=== PATIENT | female | born 1980 | race Caucasian/White ===

== ENCOUNTER 2020-01-06 12:25 | Inpatient (IN) | payer OTHER ==
[2020-01-06] MEDS ORDERED: ePHEDrine SULFATE 50 MG/1 ML AMPULE ONE (12:37)
[2020-01-06] MEDS ORDERED: morphine SULFATE/PF 0.5 MG/ML (2cc Syringe - QUVA) ONE (12:37)
[2020-01-06] MEDS ORDERED: ceFAZolin SODIUM 1 GM VIAL ONE (12:37)
[2020-01-06 13:22] VITALS: BMI 35.6
[2020-01-06] MEDS ORDERED: ELECTROLYTE-148 SOLN 1,000 ML IV SCH (13:45)
[2020-01-06] MEDS ORDERED: ELECTROLYTE-148 SOLN 500 ML IV ONE (13:45)
[2020-01-06] MEDS ORDERED: CITRIC ACID/SODIUM CITRATE 30 ML UNIT-DOSE CUP PO ONE (13:45)
--- NOTE | 2020-01-06 13:51 | HP ---
Past Medical History - Admission Chief Complaint: repeat lt c s , btl History Source: Patient Limitations to Obtaining History: No Limitations - Past Medical History [employer] SUPERINTENDENT: No: Alzheimer's, CVA, Dementia, Migraine, Multiple Sclerosis, Peripheral Neuropathy, Parkinson's, Seizure, Syncope, TIA, Vertigo, Other Cardiovascular: No: AFIB, Aneurysm, Aortic Insufficiency, Aortic Stenosis, CAD, CHF, Deep Vein Thrombosis, HTN, Hyperlipdemia, OR, Mitral Insufficiency, Mitral Stenosis, Murmur, Pulmonary Hypertension, Other Pulmonary: No: Asthma, Bronchitis, Cancer, COPD, O2 Dependent, Pneumonia, Previously Intubated, Pulmonary Embolus, Pulmonary Fibrosis, Sleep Apnea, Other Gastrointestinal: No: Ascites, Cancer, Constipation, Crohn's Disease, Diverticulitis, Diverticulosis, Esophageal Varices, Gastritis, GERD, GI Bleed, Hemorrhoids, Hiatal Hernia, Inflamatory Bowel Disease, Irritable Bowel Disease, Pancreatitis, Peptic Ulcer Disease, Ulcerative Colitis, Other Hepatobiliary: No: Cirrhosis, Cholelithiasis, Cholecystitis, Choledocholithiasis , Hepatitis A, Hepatitis B, Hepatitis C, Other Renal/: No: Renal Failure, Renal Inusuff, BPH, Cancer, Hematuria, Hemodialysis , Neurogenic Bladder, Renal Calculi, UTI, Other Reproductive: No: Ectopic , Endometriosis, Fibroids, PID, Polycystic Ovary Syndrome, Postmenopausal, Other ...: 5 ...Para: 2 ...Term: 2 ...: 0 ...Spon : 0 ...Induced : 2 ...Multiple Gestation: 0 ...EDC by Sono: 02/08/20 Heme/Onc: No: Anemia, B12 Deficiency, Bleeding Disorder, Cancer, Current Chemotherapy, Current Radiation Therapy, Hemochromatosis, Hypercoaguable State, Myeloproliferative Synd, Sickle Cell Disease, Sickle Cell Trait, Thrombocytopenia, Other Infectious Disease: No: AIDS, C-Diff, Herpes Zoster, HIV, MRSA, STD's, Tuberculosis, VREF, Other Psych: No: Addictions, Anxiety, Bipolar, Depression, Panic, Psychosis, Schizophrenia, Other Musculoskeletal: No: Bursitis, Chronic low back pain, Hemiparesis, Hemiplegia, Osteoarthritis, Paraplegia, Other Rheumatology: No: Fibromyalgia, Gout, Lupus, Rheumatoid Arthritis, Sarcoidosis, Vasculitis, Other ENT: No: Allergic Rhinitis, Sinusitis, Other Endocrine: No: Rene's Disease, [place]'s Disease, Diabetes Insipidus, Diabetes Mellitus, Hyperparathyroidism, Hyperthyroidism, Hypothyroidism, Osteopenia, SIADH, Other Dermatology: No: Basal Cell, Cellulitis, Eczema, Melanoma, Psoriasis, Squamous Cell, Other - Past Surgical History Past Surgical History: Yes: Hx Myomectomy: No Hx Transabdominal Cerclage: No - Advance Directives Advance Directives: Yes: Living Will - Smoking History Smoking history: Never smoked Have you smoked in the past 12 months: No - Alcohol/Substance Use Hx Alcohol Use: No History of Substance Use: reports: None - Social History Usual Living Arrangement: Yes: With Significant Other Do you think of yourself as: Straight/Heterosexual ADL: Independent History of Recent Travel: No Home Medications - Allergies Allergies/Adverse Reactions: Allergies Allergy/AdvReac Type Severity Reaction Status Date / Time No Known Allergies Allergy Verified 01/06/20 13:31 - Home Medications Home Medications: Ambulatory Orders Vitamins (Sjr) - 1 tab PO DAILY 12/22/19 Family Medical History Family History: Denies Review of Systems - Review of Systems Constitutional: reports: No Symptoms Eyes: reports: No Symptoms HENT: reports: No Symptoms Neck: reports: No Symptoms Cardiovascular: reports: No Symptoms Respiratory: reports: No Symptoms Gastrointestinal: reports: No Symptoms Genitourinary: reports: No Symptoms Breasts: reports: No Symptoms Reported Musculoskeletal: reports: No Symptoms Integumentary: reports: No Symptoms Neurological: reports: No Symptoms Endocrine: reports: No Symptoms Hematology/Lymphatic: reports: No Symptoms Psychiatric: reports: No Symptoms Physical Exam - Maternity Vital Signs: Vital Signs Temperature 98.1 F 01/06/20 12:58 Pulse Rate 82 01/06/20 12:58 Respiratory Rate 20 01/06/20 12:58 Blood Pressure 130/82 01/06/20 12:58 O2 Sat by Pulse Oximetry (%) Constitutional: Yes: Well Nourished, No Distress, Calm Eyes: Yes: WNL, Conjunctiva Clear, EOM Intact HENT: Yes: WNL, Atraumatic, Normocephalic Neck: Yes: WNL, Supple, Trachea Midline Cardiovascular: Yes: WNL, Regular Rate and Rhythm Lungs: Clear to auscultation Breast(s): Yes: WNL - Abdominal Exam/OB Fundal Height: 38 Number of Fetuses: Single Presentation: Vertex Contractions: Yes Regularity: Irregular Intensity: Mild Monitor Mode: External Heart Rate Location: [facility] Category: I Accelerations: Uniform Decelerations: None - Vaginal Exam/OB Vaginal Bleediing: No Speculum Exam: No Amniotic Membrane Status: Intact Presentation: Vertex/Position Station: -3 - Physical Exam Musculoskeletal: Yes: WNL Extremities: Yes: WNL Edema: Yes Edema: LUE: 1+, RUE: 1+, LLE: 1+, RLE: 1+ Integumentary: Yes: WNL Deep Tendon Reflex Grade: Normal +2 ...Motor Strength: WNL Psychiatric: Yes: WNL, Alert, Oriented Assessment/Plan anti maico antibodies 64, high, per dr. hein deliver skylar, sp betamethasone
[2020-01-06] MEDS ORDERED: OXYTOCIN 20 UNITS in 0.9% NS 40 UNIT/2,000 ML INFUS.BAG IV ONE (14:05)
[2020-01-06] MEDS ORDERED: KETOROLAC TROMETHAMINE 30 MG/1 ML VIAL ONE (14:38)
[2020-01-06] MEDS ORDERED: ONDANSETRON 4 MG/2 ML VIAL IVPUSH PRN (15:34)
[2020-01-06] MEDS ORDERED: IBUPROFEN 800 MG/8 ML IJ IVPB PRN (15:41)
[2020-01-06] MEDS ORDERED: IBUPROFEN 600 MG TABLET (FP) PO PRN (15:41)
[2020-01-06] MEDS ORDERED: oxyCODONE HCL 5 MG TABLET PO PRN (15:41)
[2020-01-06] MEDS ORDERED: ACETAMINOPHEN 325 MG TABLET (FP) PO PRN (15:41)
[2020-01-06] MEDS ORDERED: METHYLERGONOVINE MALEATE 0.2 MG/1 ML AMP IM PRN (15:41)
--- NOTE | 2020-01-06 15:46 | OP ---
Operative Note - Note: Operative Date: 01/06/20 Pre-Operative Diagnosis: isoimmunization , repeat lt c s , btl Operation: repeat lt c s , btl Post-Operative Diagnosis: Same as Pre-op Surgeon: Zafar Jain Salesperson Parts: Philip Dawkins Anesthesiologist/TEACHER ADVENTURE EDUCATION: Svetlana Sparks Anesthesia: Spinal Estimated Blood Loss (mls): 800 (no complications ) Operative Report Dictated: Yes
[2020-01-06] MEDS: OXYTOCIN 20 UNITS in 0.9% NS 20 UNIT/1,000 ML INFUS.BAG IV SCH (20:30)
--- NOTE | 2020-01-06 23:45 | OP ---
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 Cord around the neck x1. Malpresentation with transverse lie. PROCEDURE: Repeat low transverse section, bilateral salpingectomy. SURGEON: Zafar Jain MD. SIGNAL MAINTENANCE TECHNICIAN: Philip Dawkins MD. ANESTHESIA: Spinal. ANESTHESIOLOGIST: Svetlana Sparks MD. INDICATION: This is a 39-year-old female patient with previous history of bilateral tubal ligation and previous history of low transverse section. Patient got with bilateral tubal ligation surprisingly, and patient was seen in ER at 7 weeks, was confirmed with the with intrauterine , and patient decided to continue with the . 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 Livingston has been following her weekly for mid cerebral artery blood flow to make sure the baby has appropriate growth and also to prevent possibility of a demise. So patient had been seen by Dr. Livingston and also has been advised by Dr. Livingston to deliver early, between 35, 36 weeks. So patient also complained of decreased movement in the past 2 weeks. So all this above in clinical findings, and patient was taken to the OR for 35.5, 36 weeks , previous for low transverse section. Patient also received betamethasone during 32, 33 weeks' time to optimize lung maturity, so patient also understood that patient has history of bilateral tubal ligation, patient will get another tubal ligation again during this . Patient declined any other family planning methods instead of tubal ligation for future family planning. DESCRIPTION OF PROCEDURE: Patient was taken to the OR and placed on operating table in supine position after spinal anesthesia was obtained. The patient's abdomen and pelvis were prepped and draped in the usual sterile manner. Pfannenstiel incision was made. The incision was made through skin, subcutaneous tissue, until the fascia was nicked in the midline. The fascia was extended bilaterally. Intraperitoneal cavity was entered, bladder flap was created. Low transverse section was entered, baby was in transverse position, delivered from vertex presentation. Baby was with cord around the neck x1. The baby was handed over to shuttle filler after umbilical cord was doubly clamped and cut. Cord blood gas was obtained. Placenta was removed. Uterus was closed in single layer, first layer interlocking Vicryl suture, good hemostasis, and both gutters were cleaned. Both ovaries were within normal limits, and the uterus was within normal limits. However, both tubes, patient did have a tubal ligation done. The isthmic end part of the tube appeared to be transected. I do not know why patient was still able to get after this first tubal ligation. So we proceeded to the salpingectomy, the distal part of the tubes including fimbriated end were clamped with a Eveline and was double transected and suture ligated . Good hemostasis was obtained. Then we proceeded in same fashion of salpingectomy performed on the left side of the tube. Again, both sides of tubes appeared to have a tubal ligation done from the previous surgery. So, no complication after the tubal ligation. Good hemostasis . Then the patient tolerated the procedure well, draining clear urine. Blood loss about 800 mL, and the patient's peritoneum was closed. Fascia was closed. Skin was closed. Transferred to recovery room in stable condition. MD GENNARO MCGILL/[id number]
[2020-01-07] MEDS: OXYTOCIN 20 UNITS in 0.9% NS 20 UNIT/1,000 ML INFUS.BAG IV SCH ×2 (05:51→17:51)
[2020-01-07 09:38] LABS: BASO % 0.4 % (0-2.0); EOS % 1.1 % (0-4.5); HEMATOCRIT 31.4 % (32.4-45.2); HEMOGLOBIN 10.6 GM/dL (10.7-15.3); LYMPH % 18.9 % (8-40); MCH 29.2 pg (25.7-33.7); MCHC 33.8 g/dl (32.0-36.0); MEAN CELL VOLUME 86.3 fl (80-96); MEAN PLT VOLUME 8.4 fl (7.5-11.1); MONO % 6.3 % (3.8-10.2); NEUT % 73.3 % (42.8-82.8); PLATELET COUNT 219 K/MM3 (134-434); RBC 3.64 M/mm3 (3.60-5.2); RDW 13.3 % (11.6-15.6); WHITE BLOOD COUNT 10.3 K/mm3 (4.0-10.0)
[2020-01-07] MEDS: ENOXAPARIN NA (PORCINE) 40 MG/0.4 ML DISP.SYRIN SQ SCH (09:57)
[2020-01-07] MEDS ORDERED: DIPHTH,PERTUSS(ACELL),TET 0.5 ML DISP.SYRIN IM ONE (10:00)
[2020-01-07] MEDS: ACETAMINOPHEN 325 MG TABLET (FP) PO PRN ×3 (11:42→21:10)
[2020-01-07] MEDS: SIMETHICONE 80 MG TAB.CHEW (FP) PO PRN ×3 (11:43→21:09)
[2020-01-07] MEDS: IBUPROFEN 600 MG TABLET (FP) PO PRN (11:43)
--- NOTE | 2020-01-07 13:29 | PN ---
Post Progress Note Post Day: 1 Type of Delivery: Repeat C/S Vital Signs: Vital Signs Temperature 97.9 F 01/07/20 06:00 Pulse Rate 72 01/07/20 06:00 Respiratory Rate 20 01/07/20 06:00 Blood Pressure 105/67 01/07/20 06:00 O2 Sat by Pulse Oximetry (%) 100 01/06/20 16:45 Breast Exam: Yes: Soft Uterus: Yes: Fundus Firm, Non-tender Incision: Yes: Dressing dry and intact Abdomen/GI: Yes: Abdomen soft, Tolerating PO Lochia: Yes: Serosa Lochia, amount: Small Extremities: Yes: Calves non-tender Perineum: Yes: Intact Activity: Ambulating - Labs Labs: CBC WBC 10.3 K/mm3 (4.0-10.0) H 01/07/20 08:22 RBC 3.64 M/mm3 (3.60-5.2) 01/07/20 08:22 Hgb 10.6 GM/dL (10.7-15.3) L 01/07/20 08:22 Hct 31.4 % (32.4-45.2) L 01/07/20 08:22 MCV 86.3 fl (80-96) 01/07/20 08:22 MCH 29.2 pg (25.7-33.7) 01/07/20 08:22 MCHC 33.8 g/dl (32.0-36.0) 01/07/20 08:22 RDW 13.3 % (11.6-15.6) 01/07/20 08:22 Plt Count 219 K/MM3 (134-434) 01/07/20 08:22 MPV 8.4 fl (7.5-11.1) 01/07/20 08:22 Absolute Neuts (auto) 7.6 K/mm3 (1.5-8.0) 01/07/20 08:22 Neutrophils % 73.3 % (42.8-82.8) 01/07/20 08:22 Lymphocytes % 18.9 % (8-40) 01/07/20 08:22 Monocytes % 6.3 % (3.8-10.2) 01/07/20 08:22 Eosinophils % 1.1 % (0-4.5) 01/07/20 08:22 Basophils % 0.4 % (0-2.0) 01/07/20 08:22 Nucleated RBC % 0 % (0-0) 01/07/20 08:22
[2020-01-07] MEDS ORDERED: BISACODYL 10 MG SUPP.RECT RC PRN (15:41)
[2020-01-07] MEDS: oxyCODONE HCL 5 MG TABLET PO PRN ×2 (16:22→21:09)
[2020-01-07] MEDS: SENNOSIDES/DOCUSATE COMBO (SENNA PLUS) TABLET (UD) PO PRN (21:09)
[2020-01-08] MEDS: ACETAMINOPHEN 325 MG TABLET (FP) PO PRN ×4 (02:00→20:04)
[2020-01-08] MEDS: IBUPROFEN 600 MG TABLET (FP) PO PRN ×3 (08:36→20:04)
[2020-01-08] MEDS: SIMETHICONE 80 MG TAB.CHEW (FP) PO PRN ×3 (08:36→20:07)
[2020-01-08] MEDS: ENOXAPARIN NA (PORCINE) 40 MG/0.4 ML DISP.SYRIN SQ SCH (09:51)
--- NOTE | 2020-01-08 10:12 | PN ---
Progress Note (short form) - Note Progress Note: Anesthesia post op note, POD#2. S/P repeat and BTL under spinal. vss. ambulating. No apparent post anesthesia complications.
[2020-01-08] MEDS: SENNOSIDES/DOCUSATE COMBO (SENNA PLUS) TABLET (UD) PO PRN (20:05)
--- NOTE | 2020-01-08 20:45 | PN ---
Post Progress Note Post Day: 2 Type of Delivery: Repeat C/S Vital Signs: Vital Signs Temperature 98.1 F 01/08/20 20:11 Pulse Rate 94 H 01/08/20 20:11 Respiratory Rate 20 01/08/20 20:11 Blood Pressure 115/72 01/08/20 20:11 O2 Sat by Pulse Oximetry (%) 100 01/06/20 16:45 Breast Exam: Yes: Soft Uterus: Yes: Fundus Firm, Fundus below umbilicus Incision: Yes: Dressing dry and intact Abdomen/GI: Yes: Abdomen soft, Tolerating PO Lochia: Yes: Rubra Lochia, amount: Small Extremities: Yes: Calves non-tender Perineum: Yes: Intact Activity: Ambulating - Labs Labs: CBC WBC 10.3 K/mm3 (4.0-10.0) H 01/07/20 08:22 RBC 3.64 M/mm3 (3.60-5.2) 01/07/20 08:22 Hgb 10.6 GM/dL (10.7-15.3) L 01/07/20 08:22 Hct 31.4 % (32.4-45.2) L 01/07/20 08:22 MCV 86.3 fl (80-96) 01/07/20 08:22 MCH 29.2 pg (25.7-33.7) 01/07/20 08:22 MCHC 33.8 g/dl (32.0-36.0) 01/07/20 08:22 RDW 13.3 % (11.6-15.6) 01/07/20 08:22 Plt Count 219 K/MM3 (134-434) 01/07/20 08:22 MPV 8.4 fl (7.5-11.1) 01/07/20 08:22 Absolute Neuts (auto) 7.6 K/mm3 (1.5-8.0) 01/07/20 08:22 Neutrophils % 73.3 % (42.8-82.8) 01/07/20 08:22 Lymphocytes % 18.9 % (8-40) 01/07/20 08:22 Monocytes % 6.3 % (3.8-10.2) 01/07/20 08:22 Eosinophils % 1.1 % (0-4.5) 01/07/20 08:22 Basophils % 0.4 % (0-2.0) 01/07/20 08:22 Nucleated RBC % 0 % (0-0) 01/07/20 08:22
--- NOTE | 2020-01-08 20:47 | DS ---
Physical Exam-SOCIAL PROBLEMS SPECIALIST Vital Signs: Vital Signs Temperature 98.1 F 01/08/20 20:11 Pulse Rate 94 H 01/08/20 20:11 Respiratory Rate 20 01/08/20 20:11 Blood Pressure 115/72 01/08/20 20:11 O2 Sat by Pulse Oximetry (%) 100 01/06/20 16:45 Constitutional: Yes: Well Nourished, No Distress, Calm Eyes: Yes: WNL, Conjunctiva Clear, EOM Intact HENT: Yes: WNL, Atraumatic, Normocephalic Neck: Yes: WNL, Supple, Trachea Midline Cardiovascular: Yes: WNL, Regular Rate and Rhythm Respiratory: Yes: WNL, Regular, CTA Bilaterally Gastrointestinal: Yes: WNL, Normal Bowel Sounds, Soft ...Rectal Exam: Yes: WNL Renal/: Yes: WNL Pelvis: Yes: WNL External Genitalia: Yes: Normal Internal Exam Deferred: Yes Vaginal Exam: Yes: Normal Cervix: Yes: Normal Uterus: Yes: Normal Adnexa: Normal: Bilateral ....Post : Yes: Uterus firm, Uterus non-tender Breast(s): Yes: WNL Musculoskeletal: Yes: WNL Extremities: Yes: WNL Edema: No Integumentary: Yes: WNL Wound/Incision: Yes: Clean/Dry, Well Approximated Neurological: Yes: WNL, Alert, Oriented ...Motor Strength: WNL Psychiatric: Yes: WNL, Alert, Oriented Labs: CBC, BMP 01/07/20 08:22 Delivery - Delivery Type of Anesthesia: Spinal Episiotomy/Laceration: None EBL (cc): 800 Delivery, Single - Stages of Labor Date of Delivery: 01/06/20 Time of Delivery: 14:41 Time Placenta Delivered: 14:42 - Condition of Infant Clam Sorter/Terra Cotta Setter Present: Yes Name: Jennifer Sehth Infant Gender: Female Weight: 2.24 kg Total Hours ROM (Hrs/Mins): 0hrs 2min - 1 Minute Total Score: 6 5 Minutes Total Score: 9 - [place] Feeding Plan Initial Plan: Elected not to breastfeed exclusively throughout hospitalization Discharge Summary Problems reviewed: Yes Reason For Visit: REPEAT Procedures: Principal: repeat c s , btl Condition: Good - Instructions Disposition: HOME - Home Medications Comprehensive Discharge Medication List: Ambulatory Orders Vitamins (Sjr) - 1 tab PO DAILY 12/22/19 Prescription Drug Monitoring Program (I-STOP) results: I-STOP reviewed and no issues identified
[2020-01-09] MEDS: IBUPROFEN 600 MG TABLET (FP) PO PRN ×4 (08:08→23:33)
[2020-01-09] MEDS: ACETAMINOPHEN 325 MG TABLET (FP) PO PRN ×4 (08:08→23:34)
[2020-01-09] MEDS: SIMETHICONE 80 MG TAB.CHEW (FP) PO PRN ×4 (08:08→23:34)
[2020-01-09] MEDS: ENOXAPARIN NA (PORCINE) 40 MG/0.4 ML DISP.SYRIN SQ SCH (09:36)
[2020-01-09] MEDS: SENNOSIDES/DOCUSATE COMBO (SENNA PLUS) TABLET (UD) PO PRN (23:34)
[2020-01-10] MEDS: SIMETHICONE 80 MG TAB.CHEW (FP) PO PRN ×2 (03:57→09:42)
[2020-01-10] MEDS: IBUPROFEN 600 MG TABLET (FP) PO PRN ×2 (03:58→09:42)
[2020-01-10] MEDS: ACETAMINOPHEN 325 MG TABLET (FP) PO PRN ×2 (03:58→09:40)
[2020-01-10] MEDS: ENOXAPARIN NA (PORCINE) 40 MG/0.4 ML DISP.SYRIN SQ SCH (09:31)
[2020-01-10 11:08] VITALS: BP 134/81; PULSE 81; TEMP 97.9
--- NOTE | 2020-01-11 17:35 | PATH ---
Surgical Pathology Report Patient Name: NOY GALLEGOS [facility]. Rec. #: [id number] /Age/Gender: 1980 (Age: 39) / F Account: [id number] Location: [facility] OBS/ICT HELP DESK OFFICER Taken: 01/06/2020 Received: 01/09/2020 Reported: 01/11/2020 Physicians: Zafar Jain MD Specimen(s) Received A: PLACENTA B: PORTION OF RIGHT FALLOPIAN TUBE C: PORTION OF LEFT FALLOPIAN TUBE Clinical History , Anti-K x1, tubal ligation 2013, breast reduction 2000 Final Diagnosis A. PLACENTA: THIRD TRIMESTER PLACENTA. TRIVASCULAR CORD. MEMBRANES WITH NO DIAGNOSTIC ABNORMALITIES. B. PORTION OF RIGHT FALLOPIAN TUBE, RESECTION: COMPLETE CROSS SECTION OF THE FALLOPIAN TUBE LUMEN IDENTIFIED. C. PORTION OF LEFT FALLOPIAN TUBE, RESECTION: COMPLETE CROSS SECTION OF THE FALLOPIAN TUBE LUMEN IDENTIFIED. Electronically Signed Kev Issa M.D. Gross Description A. The specimen is received fresh labeled placenta and is a 318 gram, 17.0 x 12.5 x 3.0 cm. placenta with attached membranes and umbilical cord. The attached membranes are diehl, translucent with focal opacities and insert marginally. The umbilical cord measures 10.5 cm. in length and averages 1.3 cm. in diameter. The cord inserts eccentrically, 1.5 cm. to the nearest margin. No true knots or strictures are identified. Cut surface of the umbilical cord reveals 3 vessels. The surface is norris-blue with minimal fibrin deposition and appropriate caliber vessels. The maternal surface is red-brown with focal defects. Sectioning reveals red-brown, spongy parenchyma. No lesions are identified. Community Health Planning Director sections are submitted in three cassettes as follows: 1- membrane rolls and umbilical cord; 2-3- full thickness sections of placenta. B. Received in formalin labeled "portion of right fallopian tube," is a 1.8 cm in length fimbriated portion of fallopian tube. The outer surface is diehl-torres and smooth. Sectioning reveals an unremarkable lumen. Community Health Planning Director sections are submitted in 2 cassettes as follows: 1-fimbria; 2-cross sections of fallopian tube. C. Received in formalin labeled "portion of left fallopian tube," is a 2.0 cm in length fimbriated portion of fallopian tube. The outer surface is diehl-torres and smooth. Sectioning reveals an unremarkable lumen. Community Health Planning Director sections are submitted in 2 cassettes as follows: 1-fimbria; 2-cross sections of fallopian tube. 01/10/2020 [facility]01/10/2020
== END 2020-01-10 15:15 | disposition home or self-care (01) | DRG 783 ==
LOC: JLDR 12:25 → J3W 16:48
PROVIDERS: ADMIT Obstetrics & Gynecology; ATTEND Obstetrics & Gynecology
PROC: 10D00Z1 Extraction of Products of Conception, Low, Open Approach (ICD-10-PCS; principal; 2020-01-06)
PROC: 0UB70ZZ Excision of Bilateral Fallopian Tubes, Open Approach (ICD-10-PCS; 2020-01-06)
DX: O34.211 Maternal care for low transverse scar from previous cesarean delivery (principal); O60.14X0 Preterm labor third trimester with preterm delivery third trimester, not applicable or unspecified; N85.8 Other specified noninflammatory disorders of uterus; O69.81X0 Labor and delivery complicated by cord around neck, without compression, not applicable or unspecified; Z30.2 Encounter for sterilization; Z3A.35 35 weeks gestation of pregnancy; Z37.0 Single live birth
CPT/HCPCS: 36415; 36600; 82803; 85025; 88302-TC; 88307-TC; 90715